=== PATIENT | male | born 1980 | race Caucasian/White ===

== ENCOUNTER 2016-05-14 20:09 | Emergency (ER) | payer MEDICAID, OTHER ==
[~2016-05-14] VITALS: Ht 180.3 cm; Wt 88.6 kg
[~2016-05-14 20:09] MED LIST: OXYC5TAB72 PO
[2016-05-14 20:19] VITALS: BP 139/81; PULSE 70; RESP 16; O2SAT 98
--- NOTE | 2016-05-14 20:58 | DRSVH ---
PROCEDURE: X-RAY RIGHT SHOULDER, MINIMUM TWO VIEWS ([id number]) INDICATIONS: Pain TECHNIQUE: 3 views of the shoulder were acquired. COMPARISON: None. FINDINGS: Bones: No fractures or dislocations. No suspicious bony lesions. Visualized ribs appear intact. Soft tissues: No suspicious soft tissue calcifications. IMPRESSION: No acute fracture. No osseous lesion. If clinical suspicion and/or symptoms persist, fur ther assessment with repeat plainfilms, or advanced imaging (e.g., CT, MRI, or bone scan) may be help ful for further assessment. Dictated by: Carina Perales M.D. on 05/14/2016 at 20:57 Approved by: Carina Perales M.D. on 05/14/2016 at 20:57
--- NOTE | 2016-05-14 21:41 | ED.REPORT ---
HPI-Back Pain Under 40 Date of Service May 14, 2016 ED Provider: Kofi Hernandez MD A right-handed 36 year old male with a history of chronic neck and back pain presents to the ED complaining of right shoulder pain. The pt was lifting heavy pieces of metal today when he heard a "pop" and "felt like something tore in his shoulder." He is now experiencing right shoulder pain, right sided chest wall pain, and pain radiating down his arm to his hand. The pt takes five 10 mg Hydrocodone per day at home for pain management. Nursing Notes Stated Complaint: RIGHT ARM,NECK,SHOULDER,CHEST PAIN Chief Complaint: Extremity Trauma Nursing Notes Reviewed: Yes Allergies: Uncoded Allergies: AMOXIC (Allergy, Severe, Anaphylaxis, 05/14/16) AMYTRYPTILINE (Adverse Reaction, Intermediate, Anger, 05/14/16) Scheduled Prednisone (PredniSONE) 20 Mg Tablet 20 MG PO TID Scheduled PRN oxyCODONE (oxyCODONE) 5 Mg Tablet 5 MG PO Q6H PRN PRN For Pain General Time Seen by MD: 21:40 Chief Complaint Other (Right shoulder pain) Hx Obtained From: Patient Arrived By: Walk-in Sudden in Onset?: Yes Onset Occurred: 1 - 4 hours ago Symptom Duration: Since onset Recent Healthcare: No recent hospitalization, Recent doctor visit Similar Sx Previous: Yes Past Medical History Past Medical History chronic neck and back pain Past Surgical History none reported Smoking History Former Smoker Social History Other Social History: Good social support, Local resident Ambulatory Status Independent Review of Systems Constitutional: Denies: Chills, Fever Respiratory: Denies: Non-productive cough Cardiovascular: Reports: Chest pain GI: Denies: Abdominal pain, Nausea, Vomiting Musculoskeletal: Reports: Extremity pain (right arm), Joint pain (right shoulder), Neck pain Complete sys rev & neg: except as marked. Physical Exam Initial Vital Signs Vital Signs (First) Date Time Temp Pulse Resp B/P Pulse Ox O2 Delivery O2 Flow Rate FiO2 05/14/16 20:19 36.4 70 16 139/81 98 Room Air Initial VS: Reviewed, Vital signs normal General/Constitutional: Awake, Alert Back: Atraumatic, Full range of motion Neurologic: Oriented X3, Speech NL, No motor deficits, No sensory deficits tenderness of neck Respiratory / Chest: Atraumatic, Breath sounds NL, Breath sounds = bilat, No respiratory distress Cardiovascular: Heart rate NL, Regular rhythm, Heart sounds NL Abdomen: Atraumatic, Soft, Non-tender Lower Extremity / Pelvis / MS: Atraumatic, Full range of motion Head / Eyes: Atraumatic, Normocephalic, PERRL, EOMI ENT: Atraumatic, Airway patent, Mucous membranes moist Upper Extremity / MS: Atraumatic spasm of right trapezius tender posterior shoulder decreased range of motion secondary to pain distal sensation intact Wrist / Hand: Atraumatic, Full range of motion Skin: Atraumatic, Color NL, No rash, Warm, Dry Psychiatric: Affect NL, Mood NL Interpretation & Diagnostics X-Ray Interpretation Xray Interpretation: IMPRESSION: No acute fracture. No osseous lesion. If clinical suspicion and/or symptoms persist, further assessment with repeat plainfilms, or advanced imaging (e.g., CT, MRI, or bone scan) may be helpful for further assessment. Dictated by: Carina Perales M.D. on 05/14/2016 at 20:57 Approved by: Carina Perales M.D. on 05/14/2016 at 20:57 X-Ray Ordered: Shoulder right Interpretation / Wet Read by: Interpret - Radiologist Re-Eval/Medical Decision Med Decision/Clinical Course Right shoulder pain with a history of a popping sensation when he was lifting. This seems to be most consistent with cervical radiculopathy. Torn rotator cuff is certainly a possibility but unlikely from this physical exam. He is already on chronic pain medications. He was encouraged to take the dose prescribed. He was given an additional Dilaudid 2 mg IM now and will talk to his doctor about further pain management if needed. He was also started on prednisone and he will increase his methocarbamol to 1500 mg 3 times daily. Source of Hx: Old records Re-Evaluation/Progress : Time of Eval: 21:56 Patient Status: Condition improved Re-Evaluation/Progress Note: Pt rechecked, who is comfortable. Medication options and radiology results are discussed. The plan for discharge is discussed. The pt understands and agrees with the plan. All questions are addressed at this time. Counseled Regarding: Diagnosis, Lab results, Need for follow-up, When/why to return to ED Discharge & Departure Impression: Primary Impression: Cervical radicular pain Disposition: Home All VS Reviewed: Yes Condition: Stable Patient Instructions: Cervical Radiculopathy (ED) Additional Instructions: It sounds like you may have herniated a disc in your neck, pinching one of the cervical nerves. You were given Dilaudid 2 mg IM in the emergency room for pain. Continue your other pain medication. You were also given prednisone 20 mg, a steroid that helps to shrink the herniation to decrease the pinching of the nerve. Continue this medication prednisone 20 mg 3 times a day for 5 days, #15 prescription written. You may increase your methocarbamol to 1500 mg 3 times daily. Follow-up with your regular doctor for further evaluation, possibly to include an MRI, and for further pain management. Referrals: Alexandra Ge DO (PCP) Fletcher Attestation Portions of this note were transcribed by Luann Garza. I, Dr. Hernandez personally performed the history, physical exam and medical decision-making; I reviewed and confirmed the accuracy of the information in the transcribed note. Signed by: Fletcher Alejandro, 05/14/2016 and 2223. copies to: Alexandra Ge Howard L MD May 14, 2016 21:41 LUANN GARZA May 14, 2016 21:58
[2016-05-14] MEDS ORDERED: HYDROmorphone 1 mg/mL Inj IM ONE (22:00)
[2016-05-14] MEDS ORDERED: predniSONE 20 mg Tablet PO ONE (22:00)
[2016-05-14] MEDS ORDERED: PRE20 PO (22:40)
[2016-05-14 22:47] VITALS: BP 129/86; PULSE 65; RESP 16; O2SAT 95
[2016-07-20] MEDS ORDERED: FLUT15.88 NS (17:13)
[2016-07-20] MEDS ORDERED: FERR325T6 PO (17:13)
[2016-07-20] MEDS ORDERED: DESV50TA PO (17:13)
[2016-07-20] MEDS ORDERED: RANI150C4 PO (17:13)
[2016-07-20] MEDS ORDERED: GABA-502 PO (17:13)
[2016-07-20] MEDS ORDERED: PRAM0.122 PO (17:13)
[2016-07-20] MEDS ORDERED: TOPI50TA88 PO (17:13)
[2016-07-20] MEDS ORDERED: CETI-343 PO (17:13)
[2016-07-20] MEDS ORDERED: PRAZ2CAP2 PO (17:13)
[2016-07-20] MEDS ORDERED: ASCO500C6 PO (17:13)
[2016-07-20] MEDS ORDERED: HYDR-3740 PO (17:13)
[2016-07-20] MEDS ORDERED: IBUP200C PO (17:13)
[2016-07-20] MEDS ORDERED: CETI10CA PO (17:13)
[2016-07-20] MEDS ORDERED: METH750T3 PO (17:13)
[2016-07-20] MEDS ORDERED: ACYC400T2 PO (17:13)
== END 2016-05-14 22:46 | disposition home or self-care (01) ==
LOC: SED 20:09
DX: M54.12 Radiculopathy, cervical region (principal); M25.511 Pain in right shoulder; X50.0XXA Overexertion from strenuous movement or load, initial encounter; Y93.89 Activity, other specified; Y92.89 Other specified places as the place of occurrence of the external cause; Y99.8 Other external cause status; R07.89 Other chest pain; Z87.891 Personal history of nicotine dependence; Z88.8 Allergy status to other drugs, medicaments and biological substances
CPT/HCPCS: 73030; 96372; 99284; J1170

== ENCOUNTER 2016-06-20 12:35 | Emergency (ER) | payer OTHER ==
[~2016-06-20] VITALS: Ht 180.3 cm; Wt 86.4 kg
[~2016-06-20 12:35] MED LIST changes: +PRE20 PO
[2016-06-20 12:44] VITALS: BP 129/78; PULSE 68; RESP 15; O2SAT 97
--- NOTE | 2016-06-20 12:52 | ED.REPORT ---
HPI-Headache Date of Service Jun 20, 2016 ED Provider: History of Present Illness: 36-year-old male here for headache and neck pain after a fall on 06/18/2016. He was standing on a bale of hay about 2 feet off the ground carrying 100 pounds of weight when he tripped and fell onto his right side. He hit his right shoulder, right knee and unsure if he hit his head or not. He did not lose consciousness. Since then he has had increasing neck pain and head pain. He feels like he has neck swelling and pressure building up into the base of his skull. He states he has pain behind his right eye and in the right side of his head. This is consistent with what his regular migraines feel like although it is worse. He also complains of right shoulder pain and right knee pain and right rib pain. He has chronic knee and shoulder issues as well as chronic back and neck issues. He has full range of motion of his knee and shoulder. He is not having any difficulty breathing, he denies chest pain. He is mentating normally no acute neuro deficits. He is here with family who confirms this Nursing Notes Stated Complaint: NECK PAIN,MIGRAINE DUE TO FALL Chief Complaint: Headache Nursing Notes Reviewed: Yes Allergies: Coded Allergies: amoxicillin (Verified Allergy, Severe, heart stops, 06/20/16) amitriptyline (Verified Adverse Reaction, Severe, angry, 06/20/16) Scheduled Prednisone (PredniSONE) 20 Mg Tablet 20 MG PO TID Scheduled PRN oxyCODONE (oxyCODONE) 5 Mg Tablet 5 MG PO Q6H PRN PRN For Pain General Time Seen by MD: 12:52 Chief Complaint Headache, Neck pain Hx Obtained From: Patient, Spouse Arrived By: Walk-in Sudden in Onset?: Yes Onset Occurred: 2 days ago Context of Onset: Head injury Symptom Duration: Constant Location: : Frontal right: Occipital right Severity: Current: Severe Severity: Maximum: Severe Similar Sx Previous: Yes Past Medical History Past Medical History chronic neck and back pain Past Surgical History none reported Smoking History Former Smoker Social History Other Social History: Good social support, Local resident Ambulatory Status Independent Review of Systems Basic Review of Systems Respiratory: No shortness of breath, No cough, No wheeze Cardiovascular: No chest pain, No dyspnea on exertion, No orthopnea, No parox noct dyspnea, No palpitations Hematologic: No bleeding, No bruising Constitutional: Denies: Chills, Fatigue, Fever, Lethargy, Malaise, Recent wt loss, Weakness - generalized Eyes: Reports: Eye pain right, Denies: Visual loss bilateral Ears / Nose / Throat: Denies: Ear drainage bilateral, Ear drainage left, Ear drainage right, Ear ringing bilateral, Ear ringing left, Ear ringing right, Earache bilateral, Earache left, Earache right, Hearing loss bilateral, Hearing loss left, Hearing loss right, Mouth pain, Nasal congestion, Nose bleeding, Sinus problem, Sore throat, Throat pain, Throat swelling, Tongue pain, Tongue swelling, Toothache, Voice change GI: Denies: Abdominal pain, Anorexia, Belching, Bloody/tarry stool, Constipation, Diarrhea, Dysphagia, Hematemesis, Hematochezia, Melena, Mucousy stool, Nausea, Rectal pain, Vomiting Musculoskeletal: Reports: Extremity pain, Joint pain, Lumbar pain, Neck pain Neurologic: Denies: Abnormal movement, Bladder dysfunction, Bowel dysfunction, Change LOC, Confusion, Dizziness, Focal weakness, Headache, Lightheaded, Numbness, Problem walking, Seizure, Shaking, Slurred speech, Spinning sensation , Syncope, Unable to speak, Vision change, Weakness Psychiatric: Denies: Agitation, Anxiety, Change mental status, Confusion, Delusional, Depression, Hallucinations, auditory, Hallucinations, visual, Homicidal ideation, Hostile, Insomnia, Stress, Suicidal ideation, Unable to control self Complete sys rev & neg: except as marked. Physical Exam Initial Vital Signs Vital Signs (First) Date Time Temp Pulse Resp B/P Pulse Ox O2 Delivery O2 Flow Rate FiO2 06/20/16 12:44 36.1 68 15 129/78 97 Room Air Initial VS: Reviewed, Vital signs normal ENT: Mucous membranes moist, Conjunctiva normal, No scleral icterus Respiratory: Breath sounds normal, Clear to auscultation, No respiratory distress Cardiovascular: Regular rate & rhythm, Heart sounds normal, Intact distal pulses Abdomen / GI: Soft, Non-tender, No guarding, No rebound, No distention Extremities: Vascular intact, Neuro intact, No swelling, No tenderness Skin: Warm, Dry, No cyanosis Psychiatric: Mood/affect normal, Behavior normal, Normal thought content General/Constitutional: Awake, Alert Head / Eyes: Atraumatic, Normocephalic, PERRL, EOMI, No nystagmus, No periorbital swelling, No photophobia, Conjunctiva NL, Temporal arteries NL Neck: Supple Neck / Muscle Tenderness: Positive: Midline tenderness high, Midline tenderness low, Midline tenderness mid, Paraspinal R... (Moderate) Trauma - Neck Specific: Positive: Immobilized - C Collar Neurologic: Oriented X3, Speech NL, No motor deficits, No sensory deficits, CN II - XII intact, Cerebellar NL, Memory NL ENT: Airway patent, Mucous membranes moist, Pharynx NL, No sinus tenderness Respiratory / Chest: Breath sounds NL, Breath sounds = bilat, No respiratory distress, No rales, No rhonchi, No wheezing Cardiovascular: Heart rate NL, Regular rhythm, Heart sounds NL, Peripheral circulation NL Abdomen: Soft, Non-tender, No guarding, No rebound Skin: Color NL, No rash, Warm, Dry, Turgor NL Upper Extremity / MS: Atraumatic, Inspection NL, Full range of motion mild tenderness to R shoulder, generalized Lower Extremity / Pelvis / MS: Inspection NL, Full range of motion generalized mild tender to R knee. Interpretation & Diagnostics Interpretation & Diagnostics: Patient Name: KAYLA MAYBERRY MR#: [id number] Location: SED Ordering Phys: Sanjuana Bishop [facility] Date of Service: 06/20/16 1306 Caution: Report not yet finalized and possibly incomplete! PROCEDURE: X-RAY THORACOLUMBAR SPINE, 2 VIEWS INDICATIONS: pain TECHNIQUE: 2 views acquired of the thoracolumbar spine. COMPARISON: None. FINDINGS: Bones: No acute fractures or dislocations. Minimal leftward curvature. Visualized inferior ribs appear intact. No suspicious bony lesions. Soft tissues: No suspicious soft tissue calcifications. IMPRESSION: No displaced fracture seen. If there is continued pain, followup exam or additional imaging such as MRI or CT could be performed for further assessment. Dictated by: Saul GONZALEZ Interpreted: Rama Corral MD on 06/20/2016 at 13:43 Transcribed by: ALICIA on 06/20/2016 at 13:43 Patient Name: KAYLA MAYBERRY MR#: [id number] Location: SED Ordering Phys: Sanjuana Bishop [facility] Date of Service: 06/20/16 1302 Caution: Report not yet finalized and possibly incomplete! PROCEDURE: X-RAY RIGHT RIBS, TWO VIEWS ([id number]) INDICATIONS: fall rib pain TECHNIQUE: 2 views of the right ribs were acquired. COMPARISON: None. FINDINGS: Surgical changes and devices: None. Bones and chest wall: No fractures or dislocations. No suspicious bony lesions. Overlying soft tissues appear unremarkable. Lungs and pleura: The visualized lung appears clear. No pleural effusions or pneumothorax are visible. IMPRESSION: No displaced right rib fractures. Patient Name: KAYLA MAYBERRY MR#: [id number] Location: SED Ordering Phys: Sanjuana Bishop [facility] Date of Service: 06/20/16 1302 PROCEDURE: CT BRAIN WITHOUT CONTRAST ([id number]) INDICATIONS: fall, headpain TECHNIQUE: Noncontrast 4.5 mm thick angled axial sections acquired from the foramen magnum to the vertex, with coronal reformats. COMPARISON: None. FINDINGS: Image quality: Diagnostic. Brain: There is no acute intra-axial or extra-axial hemorrhage. No extra-axial fluid collection is identified. There is no midline shift or mass effect. The orbits are grossly unremarkable. No large areas of diffusely decreased attenuation are evident within the brain to suggest diffuse cerebral edema. No focal parenchymal abnormality is identified. The ventricles and cortical sulci are age-appropriate. There may be mild thinning of the benavides matter within the bilateral frontal and occipital regions. Bones: Calvarium and visualized facial bones are grossly intact. The imaged paranasal sinuses and mastoid air cells are clear. IMPRESSION: Unremarkable CT of the head. No acute intracranial hemorrhage. Dictated by: Dg Cunningham M.D. on 06/20/2016 at 13:00 Approved by: Dg Cunningham M.D. on 06/20/2016 at 13:02 [facility] Diagnostic Imaging Department [place], [place] [id number] Patient Name: KAYLA MAYBERRY MR#: [id number] Location: SED Ordering Phys: Sanjuana Bishop [facility] Date of Service: 06/20/16 1302 PROCEDURE: CT CERVICAL SPINE WITHOUT CONTRAST ([id number]) INDICATIONS: fall, headpain TECHNIQUE: Noncontrast 3 mm thick sections acquired from the skull base to the T4 level. Sagittal and coronal reformats were then constructed. For radiation dose reduction, the following was used: automated exposure control, adjustment of mA and/or kV according to patient size. COMPARISON: [facility], CT, CT CERVICAL SPINE WO CON, 02/12/2016, 22:36. FINDINGS: Image quality: Diagnostic. Bones: On the sagittal views, the cervicothoracic junction is adequately visualized and the alignment through this region is within normal limits. The odontoid is intact. The craniocervical and atlantoaxial junctions are well-maintained. The vertebral body heights and prevertebral soft tissues are within normal limits throughout the cervical spine without evidence to suggest acute compression fracture. The bone mineralization is within normal limits. There is straightening of the normal cervical lordosis on the sagittal images. No spondylolisthesis is evident. Mild to moderate multilevel degenerative changes of the cervical spine are best appreciated at the level of C6-7, similar to the previous exam with posterior disc osteophyte complex and mild disc height loss. Additional disc osteophyte complexes are present within the cervical spine, with another prominent area noted at C4-5. These findings are similar to the previous exam. Soft tissues: No prevertebral soft tissue swelling. Mild prominence of the left thyroid gland is not adequately evaluated on this examination. The imaged overlying soft tissues of the neck are within normal limits. IMPRESSION: 1. No acute fracture of the cervical spine. 2. Mild to moderate degenerative changes of the cervical spine are similar to the previous exam. 3. Straightening of the normal cervical lordosis may be positional, degenerative, and/or related to muscle spasm. Dictated by: Dg Cunningham M.D. on 06/20/2016 at 13:02 Approved by: Dg Cunningham M.D. on 06/20/2016 at 13:05 Lab Results Interpretation Test 06/20/16 12:53 Hold Purple Top Tube Received (Received) Hold Blue Top Tube Received (Received) Hold [place] Top Tube Received (Received) Hold [place] Top Tube Received (Received) Re-Eval/Medical Decision Med Decision/Clinical Course 1440- pain still 8/10 after dilaudid and toradol. will remedicate. c/o migraine 1520- pt pain greatly decreased. no visual loss, CARIAS decreasing. ready to go. all CT/xrays neg for fracture. Pt can rotate/move head side to side. PT has ROM of back although limited r/t pain. Discharge & Departure Shift Change Sign-Out Laboratory Evaluation: Lab evaluation discussed Imaging Studies: Imaging discussed Procedures: Results discussed Impression: Primary Impression: Migraine Migraine type: without aura Status migrainosus presence: without status migrainosus Intractability: not intractable Qualified Code: G43.009 - Migraine without aura, not intractable, without status migrainosus Additional Impressions: Neck sprain Encounter type: initial encounter Qualified Code: S13.9XXA - Sprain of joints and ligaments of unspecified parts of neck, initial encounter Rib contusion Encounter type: initial encounter Laterality: right Qualified Code: S20.211A - Contusion of right front wall of thorax, initial encounter Lumbar strain Encounter type: initial encounter Qualified Code: S39.012A - Strain of muscle, fascia and tendon of lower back, initial encounter Disposition: Home Discharge Condition All VS Reviewed: Yes Condition: Stable Patient Instructions: Costochondritis (ED), Migraine Headache (ED) Additional Instructions: Use usual pain meds as needed to control your pain. You may want to add ibuprofen 800 mg 3 times a day for inflammation. Gentle movements as allowed per pain. Return if worsening back or neck pain, loss of bowel or bladder, fevers. Return if loss vision or eye pain. Return if any change of mental status. Or return for any concerning symptoms. may use ice and heat on the painful areas as well. Follow-up with your PCP for further care. Referrals: Alexandra Ge DO (PCP) EDSupervising Provider for APC: Marcel Mejia MD, Linnea K ARNP Jun 20, 2016 12:52
--- NOTE | 2016-06-20 13:44 | DRSVH ---
PROCEDURE: X-RAY THORACOLUMBAR SPINE, 2 VIEWS INDICATIONS: pain TECHNIQUE: 2 views acquired of the thoracolumbar spine. COMPARISON: None. FINDINGS: Bones: No acute fractures or dislocations. Minimal leftward curvature. Visualized inferior ribs [place] intact. No suspicious bony lesions. Soft tissues: No suspicious soft tissue calcifications. IMPRESSION: No displaced fracture seen. If there is continued pain, followup exam or additional cecil ging such as MRI or CT could be performed for further assessment. Dictated by: Saul Herman RRA Interpreted: Rama Corral MD on 06/20/2016 at 13:43 Transcribed by: ALICIA on 06/20/2016 at 13:43 Approved by: Rama Corral MD, PhD on 06/20/2016 at 17:18
--- NOTE | 2016-06-20 13:44 | DRSVH ---
PROCEDURE: X-RAY RIGHT RIBS, TWO VIEWS ([id number]) INDICATIONS: fall rib pain TECHNIQUE: 2 views of the right ribs were acquired. COMPARISON: None. FINDINGS: Surgical changes and devices: None. Bones and chest wall: No fractures or dislocations. No suspicious bony lesions. Overlying soft tis sues appear unremarkable. Lungs and pleura: The visualized lung appears clear. No pleural effusions or pneumothorax are visib le. IMPRESSION: No displaced right rib fractures. Dictated by: Saul Herman Zhen Interpreted: Rama Corral MD on 06/20/2016 at 13:43 Transcribed by: ALICIA on 06/20/2016 at 13:44 Approved by: Rama Corral MD, PhD on 06/20/2016 at 17:18
[2016-06-20] MEDS ORDERED: HYDROmorphone 1 mg/mL Inj IVPUSH ONE (13:45)
--- NOTE | 2016-06-20 14:03 | DRSVH ---
PROCEDURE: CT BRAIN WITHOUT CONTRAST ([id number]) INDICATIONS: fall, headpain TECHNIQUE: Noncontrast 4.5 mm thick angled axial sections acquired from the foramen magnum to the vertex, with c oronal reformats. COMPARISON: None. FINDINGS: Image quality: Diagnostic. Brain: There is no acute intra-axial or extra-axial hemorrhage. No extra-axial fluid collection is i dentified. There is no midline shift or mass effect. The orbits are grossly unremarkable. No large areas of diffusely decreased attenuation are evident within the brain to suggest diffuse cer ebral edema. No focal parenchymal abnormality is identified. The ventricles and cortical sulci are age-appropriate. There may be mild thinning of the benavides matter within the bilateral frontal and occipital regions. Bones: Calvarium and visualized facial bones are grossly intact. The imaged paranasal sinuses and m astoid air cells are clear. IMPRESSION: Unremarkable CT of the head. No acute intracranial hemorrhage. Dictated by: Dg Cunningham M.D. on 06/20/2016 at 13:00 Approved by: Dg Cunningham M.D. on 06/20/2016 at 13:02
--- NOTE | 2016-06-20 14:07 | DRSVH ---
PROCEDURE: CT CERVICAL SPINE WITHOUT CONTRAST ([id number]) INDICATIONS: fall, headpain TECHNIQUE: Noncontrast 3 mm thick sections acquired from the skull base to the T4 level. Sagittal and coronal r eformats were then constructed. For radiation dose reduction, the following was used: automated exp osure control, adjustment of mA and/or kV according to patient size. COMPARISON: [facility], CT, CT CERVICAL SPINE WO CON, 02/12/2016, 22:36. FINDINGS: Image quality: Diagnostic. Bones: On the sagittal views, the cervicothoracic junction is adequately visualized and the alignment through this region is within normal limits. The odontoid is intact. The craniocervical and atlant oaxial junctions are well-maintained. The vertebral body heights and prevertebral soft tissues are w ithin normal limits throughout the cervical spine without evidence to suggest acute compression fract ure. The bone mineralization is within normal limits. There is straightening of the normal cervical lordosis on the sagittal images. No spondylolisthesis is evident. Mild to moderate multilevel degenerative changes of the cervical spine are best apprecia floresita at the level of C6-7, similar to the previous exam with posterior disc osteophyte complex and mil d disc height loss. Additional disc osteophyte complexes are present within the cervical spine, with another prominent area noted at C4-5. These findings are similar to the previous exam. Soft tissues: No prevertebral soft tissue swelling. Mild prominence of the left thyroid gland is no t adequately evaluated on this examination. The imaged overlying soft tissues of the neck are within normal limits. IMPRESSION: 1. No acute fracture of the cervical spine. 2. Mild to moderate degenerative changes of the cervical spine are similar to the previous exam. 3. Straightening of the normal cervical lordosis may be positional, degenerative, and/or related to muscle spasm. Dictated by: Dg Cunningham M.D. on 06/20/2016 at 13:02 Approved by: Dg Cunningham M.D. on 06/20/2016 at 13:05
[2016-06-20] MEDS ORDERED: HYDROmorphone 1 mg/mL Inj IM ONE (14:45)
[2016-06-20] MEDS ORDERED: MetoCLOpramide 5 mg/mL 2 mL Inj IVPUSH PRN (14:45)
[2016-06-20 15:51] VITALS: BP 126/82; PULSE 52; O2SAT 100
[2016-07-20] MEDS ORDERED: DESV50TA PO (17:13)
[2016-07-20] MEDS ORDERED: ACYC400T2 PO (17:13)
[2016-07-20] MEDS ORDERED: METH750T3 PO (17:13)
[2016-07-20] MEDS ORDERED: TOPI50TA88 PO (17:13)
[2016-07-20] MEDS ORDERED: CETI10CA PO (17:13)
[2016-07-20] MEDS ORDERED: HYDR-3740 PO (17:13)
[2016-07-20] MEDS ORDERED: IBUP200C PO (17:13)
[2016-07-20] MEDS ORDERED: CETI-343 PO (17:13)
[2016-07-20] MEDS ORDERED: GABA-502 PO (17:13)
[2016-07-20] MEDS ORDERED: FLUT15.88 NS (17:13)
[2016-07-20] MEDS ORDERED: PRAM0.122 PO (17:13)
[2016-07-20] MEDS ORDERED: RANI150C4 PO (17:13)
[2016-07-20] MEDS ORDERED: FERR325T6 PO (17:13)
[2016-07-20] MEDS ORDERED: ASCO500C6 PO (17:13)
[2016-07-20] MEDS ORDERED: PRAZ2CAP2 PO (17:13)
== END 2016-06-20 15:49 | disposition home or self-care (01) ==
LOC: SED 12:35
DX: S13.9XXA Sprain of joints and ligaments of unspecified parts of neck, initial encounter (principal); S39.012A Strain of muscle, fascia and tendon of lower back, initial encounter; S20.211A Contusion of right front wall of thorax, initial encounter; M25.511 Pain in right shoulder; M25.561 Pain in right knee; W17.89XA Other fall from one level to another, initial encounter; Y93.89 Activity, other specified; Y92.89 Other specified places as the place of occurrence of the external cause; Y99.8 Other external cause status; G43.009 Migraine without aura, not intractable, without status migrainosus; Z87.891 Personal history of nicotine dependence; Z88.1 Allergy status to other antibiotic agents; Z88.8 Allergy status to other drugs, medicaments and biological substances
CPT/HCPCS: 70450; 71100; 72080; 72125; 96372; 96374; 96375; 99285; J1170; J1200; J1885; J2765

== ENCOUNTER 2016-07-11 17:00 | Emergency (ER) | payer OTHER ==
[~2016-07-11] VITALS: Ht 180.3 cm; Wt 87.7 kg
[2016-07-11 17:04] VITALS: BP 152/89; PULSE 60; RESP 16; O2SAT 99
--- NOTE | 2016-07-11 19:01 | ED.REPORT ---
HPI-Headache Date of Service July 11, 2016 ED Provider: Doc,Ed MD The patient is a 36 year old male with history of migraines and chronic neck and back pain, who presents to the emergency department complaining of a headache that began 2 days ago. His headache is located to the center of his forehead, both eyes, and on the right side of his head. He describes the pain as dull, sharp, and throbbing depending on the location. His pain is similar to his previous migraines. He has also noticed right shoulder discomfort and right- sided neck pain, photophobia, and phonophobia. He normally takes topiramate 75 mg twice daily preventively and hydrocodone, ibuprofen, and gabapentin for break through migraines. He denies visual changes, nausea, vomiting, fevers, chills, numbness or weakness. Nursing Notes Stated Complaint: PAIN IN NECK,HEAD,RIGHT SHOULDER Chief Complaint: Headache Nursing Notes Reviewed: Yes Allergies: Coded Allergies: amoxicillin (Verified Allergy, Severe, heart stops, 07/11/16) amitriptyline (Verified Adverse Reaction, Severe, angry, 07/11/16) Scheduled Prednisone (PredniSONE) 20 Mg Tablet 20 MG PO TID Scheduled PRN oxyCODONE (oxyCODONE) 5 Mg Tablet 5 MG PO Q6H PRN PRN For Pain General Time Seen by MD: 19:01 Chief Complaint Migraine headache Hx Obtained From: Patient Arrived By: Walk-in Sudden in Onset?: Yes Onset Occurred: 3 days ago Symptom Duration: Since onset Location: : Frontal bilateral: Parietal right: Retro orbital Quality: Dull, Painful, Sharp, Throbbing Severity: Current: Moderate Severity: Maximum: Severe Recent Healthcare: No recent hospitalization Similar Sx Previous: Yes Past Medical History Past Medical History Chronic neck and back pain Migraines Past Surgical History none reported Family History Noncontributory Smoking History Former Smoker Social History Other Social History: Good social support, Local resident Ambulatory Status Cane Review of Systems Review of Systems Note: +phonophobia Constitutional: Denies: Chills, Fever Eyes: Reports: Photophobia GI: Denies: Nausea, Vomiting Musculoskeletal: Reports: Joint pain, Neck pain Neurologic: Reports: Headache, Denies: Numbness, Vision change, Weakness Complete sys rev & neg: except as marked. Physical Exam Initial Vital Signs Vital Signs (First) Date Time Temp Pulse Resp B/P Pulse Ox O2 Delivery O2 Flow Rate FiO2 07/11/16 17:04 37.0 60 16 152/89 99 Room Air Initial VS: Reviewed, Vital signs abnormal ENT: Mucous membranes moist, Conjunctiva normal, No scleral icterus Respiratory: Breath sounds normal, Clear to auscultation, No respiratory distress Cardiovascular: Regular rate & rhythm, Heart sounds normal, Intact distal pulses Abdomen / GI: Soft, Non-tender, No guarding, No rebound, No distention Lymphatic: No lymphadenopathy Extremities: Vascular intact, No swelling, No tenderness Skin: Warm, Dry, No cyanosis Psychiatric: Mood/affect normal, Behavior normal, Normal thought content General/Constitutional: Awake, Alert Head / Eyes: Atraumatic, Normocephalic, PERRL, EOMI, No nystagmus, No photophobia, Conjunctiva NL, Temporal arteries NL Neck: Atraumatic, Supple, No meningismus, Full range of motion, No swelling, No midline vertebral tend Right-sided paraspinal tenderness. Neurologic: Oriented X3, Speech NL, No motor deficits, CN II - XII intact, Cerebellar NL, Memory NL Decreased sensation to his right lower leg (pt states this is chronic) Re-Eval/Medical Decision Med Decision/Clinical Course The patient has history of migraines and states this is typical migraine. He also has chronic shoulder problems and states his symptoms are worse but not new for him. Patient was treated with the tip. Pain medications patient was feeling improved and wanted to be discharged. There is no sign of a more serious etiology such as subarachnoid hemorrhage or meningitis. Source of Hx: Old records Re-Evaluation/Progress #1: Time of Eval: 19:12 Re-Evaluation/Progress Note: Discussed plan for treatment. Re-Evaluation/Progress #2: Time of Eval: 20:26 Re-Evaluation/Progress Note: The patient is feeling better and would like to go home. Counseled Regarding: Diagnosis, Need for follow-up, When/why to return to ED Discharge & Departure Impression: Primary Impression: Migraine Migraine type: unspecified Status migrainosus presence: without status migrainosus Intractability: not intractable Qualified Code: G43.909 - Migraine, unspecified, not intractable, without status migrainosus Disposition: Home Discharge Condition All VS Reviewed: Yes Condition: Stable Patient Instructions: Migraine Headache (ED) Additional Instructions: Thank you for entrusting us with your care today. I am glad you are feeling better. Go home and sleep if you can. You should be re-evaluated if you wake up with a headache. Seek care for any new or concerning symptoms. Referrals: Alexandra Ge DO (PCP) Fletcher Attestation Portions of this note were transcribed by Tessie Morales. I, Dr. Mae personally performed the history, physical exam and medical decision-making; I reviewed and confirmed the accuracy of the information in the transcribed note. Signed by: Fletcher Yanes, 07/11/2016 at 2045. copies to: Alexandra Ge Jena M MD July 11, 2016 19:01 Tessie Morales July 11, 2016 19:12
[2016-07-11] MEDS ORDERED: ProchlorPERazine 5 mg/mL 2 mL Inj IVPUSH ONE (19:15)
[2016-07-11] MEDS ORDERED: Dexamethasone Inj 10 MG in 0.9% Sodium Chloride-Pha MIX 50 ML IV ONE (19:15)
[2016-07-11] MEDS ORDERED: 0.9% Sodium Chloride 1,000 ML IV ONE (19:15)
[2016-07-11 20:37] VITALS: BP 126/69; PULSE 50; RESP 15; O2SAT 96
[2016-07-20] MEDS ORDERED: METH750T3 PO (17:13)
[2016-07-20] MEDS ORDERED: PRAZ2CAP2 PO (17:13)
[2016-07-20] MEDS ORDERED: ACYC400T2 PO (17:13)
[2016-07-20] MEDS ORDERED: CETI10CA PO (17:13)
[2016-07-20] MEDS ORDERED: ASCO500C6 PO (17:13)
[2016-07-20] MEDS ORDERED: TOPI50TA88 PO (17:13)
[2016-07-20] MEDS ORDERED: HYDR-3740 PO (17:13)
[2016-07-20] MEDS ORDERED: GABA-502 PO (17:13)
[2016-07-20] MEDS ORDERED: IBUP200C PO (17:13)
[2016-07-20] MEDS ORDERED: DESV50TA PO (17:13)
[2016-07-20] MEDS ORDERED: FERR325T6 PO (17:13)
[2016-07-20] MEDS ORDERED: RANI150C4 PO (17:13)
[2016-07-20] MEDS ORDERED: CETI-343 PO (17:13)
[2016-07-20] MEDS ORDERED: FLUT15.88 NS (17:13)
[2016-07-20] MEDS ORDERED: PRAM0.122 PO (17:13)
== END 2016-07-11 20:31 | disposition home or self-care (01) ==
LOC: SED 17:00
DX: G43.909 Migraine, unspecified, not intractable, without status migrainosus (principal); M54.2 Cervicalgia; M25.511 Pain in right shoulder; M54.9 Dorsalgia, unspecified; G89.29 Other chronic pain; Z87.891 Personal history of nicotine dependence; Z88.8 Allergy status to other drugs, medicaments and biological substances; Z88.0 Allergy status to penicillin
CPT/HCPCS: 96374; 96375; 99284; G0463; J0780; J1100; J1200; J1885; J3360; J7030

== ENCOUNTER 2016-07-22 09:15 | Day surgery (SDC) | payer OTHER ==
[~2016-07-22] VITALS: Ht 180.3 cm; Wt 88.0 kg
[~2016-07-22 09:15] MED LIST changes: +ACYC400T2 PO; +ASCO500C6 PO; +CETI-343 PO; +CETI10CA PO; +DESV50TA PO; +FERR325T6 PO; +FLUT15.88 NS; +GABA-502 PO; +HYDR-3740 PO; +IBUP200C PO; +METH750T3 PO; -OXYC5TAB72 PO; +PRAM0.122 PO; +PRAZ2CAP2 PO; -PRE20 PO; +RANI150C4 PO; +TOPI50TA88 PO; +fentaNYL-PF 50 mCg/mL 2 mL Inj IVPUSH PRN
[2016-07-22] MEDS ORDERED: Iohexol 240 mg/mL 10 mL Inj ONE (09:16)
[2016-07-22] MEDS ORDERED: MethylprednisoLONE Depot 80 mg/mL Inj ONE (09:16)
[2016-07-22 09:48] VITALS: BP 147/88; PULSE 60; RESP 14; O2SAT 98
[2016-07-22 10:38] VITALS: BP 139/83; PULSE 52; RESP 16; O2SAT 96
[2016-07-22 10:50] VITALS: BP 131/81; PULSE 52; RESP 16; O2SAT 97
[2016-07-22 10:57] VITALS: BP 143/90; PULSE 55; RESP 16; O2SAT 97
[2016-07-22] MEDS ORDERED: 0.9% Sodium Chloride 1,000 ML IV ONE (11:00)
--- NOTE | 2016-07-22 15:01 | PCM.PROC ---
Procedure Note Date of Service: July 22, 2016 Pre Procedure Diagnosis: PROCEDURE: Cervical interlaminar epidural steroid injection. C6-C7. IV sedation PRE-PROCEDURE DIAGNOSIS: Cervical radiculopathy/cervical spinal stenosis POST-PROCEDURE DIAGNOSIS: same INDICATION: 36-year-old gentleman with cervical spinal stenosis/radiculopathy PERFORMED BY: Bladimir Garcia MD DESCRIPTION OF PROCEDURE: Patient was met in the holding area. Consent was signed, site was confirmed and all questions were answered. Patient was taken to the procedure suite and placed prone on the procedure table with neck in a flexed position. The proper interspace was identified using fluoroscopic guidance. Local anesthesia with 1% lidocaine was used to anesthetize the skin and subcutaneous tissues. A 20-gauge Touhy epidural needle was advanced under tunnel view vision using direct fluoroscopic guidance towards the inferior lamina using a RIGHT paramedian approach. A contralateral oblique view was used to gauge depth after the needle was walked off the lamina. After loss of resistance was obtained using a loss of resistance syringe, radiopaque contrast was injected under live fluoroscopic view which confirmed epidural placement as well as the absence of intravascular uptake. 80 mg Depo-Medrol was injected without difficulty. ANESTHESIA: Local. 2 mg Versed EBL: None. No Blood Products Used COMPLICATIONS: None SPECIMENS: None POST-PROCEDURE DISPOSITION: Patient was returned to the holding area in stable condition. They were discharged home when all discharge criteria were met. Evaluation/Physical Exam before discharge revealed: No Neurologic Change DISCHARGE MEDICATIONS: None FOLLOW UP: Return to clinic in 4 weeks Bladimir Garcia MD * Pain Management * Anesthesiology (Dictated using voice-recognition software) Bladimir Garcia MD July 22, 2016 15:01
== END 2016-07-22 23:59 | disposition home or self-care (01) ==
LOC: END 09:15
PROVIDERS: ATTEND Anesthesiology Pain Medicine
DX: M48.02 Spinal stenosis, cervical region (principal); G95.9 Disease of spinal cord, unspecified; M54.12 Radiculopathy, cervical region; Z87.891 Personal history of nicotine dependence; F43.10 Post-traumatic stress disorder, unspecified
CPT/HCPCS: 62321; G0500; J1040; J7030

== ENCOUNTER 2016-09-04 14:23 | Emergency (ER) | payer OTHER ==
[~2016-09-04] VITALS: Ht 180.3 cm; Wt 84.1 kg
[~2016-09-04 14:23] MED LIST changes: -fentaNYL-PF 50 mCg/mL 2 mL Inj IVPUSH PRN
[2016-09-04 14:31] VITALS: BP 138/83; PULSE 57; RESP 20; O2SAT 99
--- NOTE | 2016-09-04 15:59 | ED.REPORT ---
History Present Illness Date of Service Sep 04, 2016 ED Provider: Nursing Notes Stated Complaint: MIGRAINE Chief Complaint: Headache Allergies: Coded Allergies: amoxicillin (Verified Allergy, Severe, heart stops, 07/11/16) clavulanic acid (Verified Allergy, Mild, 07/20/16) amitriptyline (Verified Adverse Reaction, Severe, angry, 07/11/16) Scheduled Acyclovir (Acyclovir) 400 Mg Tablet 400 MG PO BID Cetirizine HCl (Zyrtec) 10 Mg Capsule 10 MG PO HS Desvenlafaxine Succinate ER (Pristiq ER) 50 Mg Tablet 50 MG PO DAILY Fluticasone Propionate (Fluticasone Propionate) 50 Mcg/Actuation [place].susp 15.8 ML NS DAILY Gabapentin (Gabapentin) 300 Mg Capsule 1,200 MG PO TID Pramipexole Dihydrochloride (Mirapex) 0.125 Mg Tablet 0.125 MG PO HS Prazosin (Prazosin) 2 Mg Capsule 2 MG PO QID Ranitidine (Ranitidine) 150 Mg Capsule 150 MG PO BID Topiramate (Topiramate) 25 Mg Tablet 75 MG PO BID Scheduled PRN Haloperidol (Haloperidol) 5 Mg Tablet 2.5-5 MG PO Q8H PRN PRN migraine Hydrocodone-Acetaminophen 10-325 mg (Hydrocodone-Acetaminophen 10-325 mg) 1 Each Tablet 1 TABLET PO Q6H PRN PRN For Pain Ibuprofen (Ibuprofen) 600 Mg Tablet 600 MG PO QID PRN PRN For Pain Methocarbamol (Methocarbamol) 750 Mg Tablet 750 MG PO QID PRN PRN For Spasm General Time Seen by MD: 15:58 Past Medical History Smoking History Former Smoker Physical Exam Initial Vital Signs Vital Signs (First) Date Time Temp Pulse Resp B/P Pulse Ox O2 Delivery O2 Flow Rate FiO2 09/04/16 14:31 36.5 57 20 138/83 99 Room Air Discharge & Departure Referrals: Alexandra Ge DO (PCP) Sanjuana Bishop Sep 04, 2016 15:59 Sanjuana Bishop Sep 04, 2016 15:59
--- NOTE | 2016-09-04 16:08 | ED.REPORT ---
HPI-Headache Date of Service Sep 04, 2016 ED Provider: Julian Roman MD Pt is a 36 y/o male w/ a hx of migraines presenting to the ED c/o CARIAS onset 2 days ago. The patient states that he gets migraines occasionally after a head injury in the past and they are sometimes brought on by warm weather such as today. He c/o associated photophobia, nausea. Pt denies vomiting, fever, chills , neck pain, vision or speech changes, focal numbness or weakness. There is no significant difference between his headache today and a typical migraine. Nursing Notes Stated Complaint: MIGRAINE Chief Complaint: Headache Nursing Notes Reviewed: Yes ([employer], [employer] not reconciled) Allergies: Coded Allergies: amoxicillin (Verified Allergy, Severe, heart stops, 07/11/16) clavulanic acid (Verified Allergy, Mild, 07/20/16) amitriptyline (Verified Adverse Reaction, Severe, angry, 07/11/16) Scheduled Acyclovir (Acyclovir) 400 Mg Tablet 400 MG PO BID Cetirizine HCl (Zyrtec) 10 Mg Capsule 10 MG PO HS Desvenlafaxine Succinate ER (Pristiq ER) 50 Mg Tablet 50 MG PO DAILY Fluticasone Propionate (Fluticasone Propionate) 50 Mcg/Actuation [place].susp 15.8 ML NS DAILY Gabapentin (Gabapentin) 300 Mg Capsule 1,200 MG PO TID Pramipexole Dihydrochloride (Mirapex) 0.125 Mg Tablet 0.125 MG PO HS Prazosin (Prazosin) 2 Mg Capsule 2 MG PO QID Ranitidine (Ranitidine) 150 Mg Capsule 150 MG PO BID Topiramate (Topiramate) 25 Mg Tablet 75 MG PO BID Scheduled PRN Haloperidol (Haloperidol) 5 Mg Tablet 2.5-5 MG PO Q8H PRN PRN migraine Hydrocodone-Acetaminophen 10-325 mg (Hydrocodone-Acetaminophen 10-325 mg) 1 Each Tablet 1 TABLET PO Q6H PRN PRN For Pain Ibuprofen (Ibuprofen) 600 Mg Tablet 600 MG PO QID PRN PRN For Pain Methocarbamol (Methocarbamol) 750 Mg Tablet 750 MG PO QID PRN PRN For Spasm General Time Seen by MD: 16:04 Chief Complaint Headache Hx Obtained From: Patient Arrived By: Walk-in Sudden in Onset?: No Onset Occurred: 2 days ago Symptom Duration: Since onset Location: : Generalized Quality: Aching Severity: Current: Moderate Severity: Maximum: Moderate Recent Healthcare: Previous diagnosis Similar Sx Previous: Yes Past Medical History Past Medical History Chronic neck and back pain Migraines Restless leg syndrome Past Surgical History none reported Family History Noncontributory Smoking History Former Smoker Social History Other Social History: Good social support, Local resident Ambulatory Status Cane Review of Systems Constitutional: Denies: Chills, Fever GI: Reports: Nausea, Denies: Abdominal pain, Vomiting Musculoskeletal: Denies: Neck pain Neurologic: Reports: Headache, Denies: Focal weakness, Numbness, Slurred speech, Unable to speak, Vision change Complete sys rev & neg: except as marked. Physical Exam Initial Vital Signs Vital Signs (First) Date Time Temp Pulse Resp B/P Pulse Ox O2 Delivery O2 Flow Rate FiO2 09/04/16 14:31 36.5 57 20 138/83 99 Room Air Initial VS: Reviewed, Vital signs normal ENT: Mucous membranes moist, Conjunctiva normal, No scleral icterus Respiratory: Breath sounds normal, Clear to auscultation, No respiratory distress Cardiovascular: Regular rate & rhythm, Heart sounds normal, Intact distal pulses Abdomen / GI: Soft, No distention Extremities: Vascular intact, Neuro intact, No swelling Skin: Warm, Dry, No cyanosis Psychiatric: Mood/affect normal, Behavior normal, Normal thought content General/Constitutional: Awake, Alert, No acute distress, Well appearing, Cooperative, Not toxic appearing Head / Eyes: Atraumatic, Normocephalic, PERRL Neck: Atraumatic, Supple, No meningismus, Full range of motion Neurologic: Oriented X3, Speech NL, No motor deficits, No sensory deficits Re-Eval/Medical Decision Med Decision/Clinical Course This is a 36-year-old male with a long history of migraines following traumatic injury years ago, is intermittent headaches. Presents complaining of a migraine with the past days. Reports is typical, severe, with photophobia trace nausea. He is seeing multiple providers, but never had a definitive cocktail that has worked well. He reports he developed severe akisthesia the point he signed out about this last ED presentation here, likely from promethazine. Than he has no focal deficits. He has no red flags to suggest meningitis, subarachnoid, or need for CT imaging or LP. Went over a number of medicines and although as I was in his allergies is intolerant of many describes significant concern for trying Phenergan at all again. There are multiple traumas patient is here, requiring and spitting care in the end I gave him a dose of Dilaudid is reports S worked well. It helped considerably, but I was able to document to an adjunct of haloperidol that worked really well-the point he feels much better and I am discharging him with some oral haloperidol for when necessary use. Denies follow-up with his provider. Routine and return precautions reviewed. Source of Hx: Old records Re-Evaluation/Progress #1: Time of Eval: 17:00 Re-Evaluation/Progress Note: Pt rechecked. Feeling better but still has a moderate CARIAS. Re-Evaluation/Progress #2: Time of Eval: 17:56 )( Patient Status: Condition improved, Moderate relief, Pain improved Evaluation: Mental status normal, Neurologic nonfocal Re-Evaluation/Progress Note: Pt rechecked. Informed pt of plan for treatment. Pt understands and agrees with plan for treatment. F/U instructions and RTER warnings given. All questions addressed. Differential Diagnosis: Positive: Headache, migraine, Negative: Carbon monoxide toxicity, Cerebrovascular accident, Closed head injury, Encephalitis, Headache, post LP, Hemorrhage, cerebellar, Hemorrhage, intracerebral, Hemorrhage, subarachnoid, Hemorrhage, subdural, Intracranial abscess, Medication reaction, Meningitis, Post-traumatic/concussion, Pseudotumor cerebri, Temporal arteritis Counseled Regarding: Diagnosis, Need for follow-up, When/why to return to ED Discharge & Departure Impression: Primary Impression: Migraine Migraine type: unspecified Status migrainosus presence: without status migrainosus Intractability: not intractable Qualified Code: G43.909 - Migraine, unspecified, not intractable, without status migrainosus Disposition: Home Discharge Condition All VS Reviewed: Yes Condition: Stable Patient Instructions: Migraine Headache (ED) Additional Instructions: 1. Rest. 2. I have written for some haloperidol 5mg 1/2-1 tab up to every 12 hours if needed for migraine headache. NOTE: This medication causes drowsiness. NO driving for at least 6 hours after taking. Referrals: Alexandra Ge DO (PCP) Scribe Attestation Portions of this note were transcribed by Rick Albarran. I, Dr. Roman personally performed the history, physical exam and medical decision-making; I reviewed and confirmed the accuracy of the information in the transcribed note. Signed by Fletcher Camacho, 09/04/16 1622 copies to: Alexandra Ge Matthew F MD Sep 04, 2016 16:08 RICK ALBARRAN Sep 04, 2016 16:15
[2016-09-04] MEDS ORDERED: HYDROmorphone 1 mg/mL Inj IVPUSH ONE ×2 (16:20→17:10)
[2016-09-04] MEDS ORDERED: IBUP-1827 PO (16:50)
[2016-09-04] MEDS ORDERED: TOPI-59 PO (16:50)
[2016-09-04] MEDS ORDERED: GABA-502 PO (16:50)
[2016-09-04] MEDS ORDERED: Haloperidol 5 mg/mL Inj IVPUSH ONE (17:10)
[2016-09-04] MEDS ORDERED: HAL5 PO (17:52)
[2016-09-04 18:07] VITALS: BP 131/77; PULSE 54; RESP 16; O2SAT 99
== END 2016-09-04 18:08 | disposition home or self-care (01) ==
LOC: SED 14:23
DX: G43.909 Migraine, unspecified, not intractable, without status migrainosus (principal); Z87.891 Personal history of nicotine dependence; Z79.899 Other long term (current) drug therapy; Z88.1 Allergy status to other antibiotic agents; Z88.8 Allergy status to other drugs, medicaments and biological substances
CPT/HCPCS: 96374; 96375; 96376; 99284; J1170; J1630

== ENCOUNTER 2016-09-20 20:40 | Emergency (ER) | payer OTHER ==
[~2016-09-20] VITALS: Ht 180.3 cm; Wt 86.0 kg
[~2016-09-20 20:40] MED LIST changes: -ASCO500C6 PO; -CETI-343 PO; -FERR325T6 PO; +HAL5 PO; +IBUP-1827 PO; -IBUP200C PO; +TOPI-59 PO; -TOPI50TA88 PO
[2016-09-20 21:10] VITALS: BP 144/89; PULSE 59; RESP 16; O2SAT 99
[2016-09-20 22:12] LABS: BASOPHILS % (AUTO) 0.2 % (0-3); EOSINOPHILS % (AUTO) 1.8 % (0-5); Mean Corpuscular Hemoglobin 32.2 pg (27.0-35.0); Mean Corpuscular Volume 91.7 fL (81-100); NEUTROPHILS % (AUTO) 48.4 % (40-74); Platelet Count 405 bil/L (150-400)
--- NOTE | 2016-09-20 22:40 | ED.REPORT ---
HPI-Headache Date of Service Sep 20, 2016 ED Provider: Dr. Sarabia 36 y/o male with hx of migraines presents to the ED complaining of a worsening headache, onset 3 days ago. 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 His headache has been constant since then. Associated sx include lack of appetite, dizziness and fatigue. He denies nausea, vomiting and decreased sensation in extremities. He took his prescribed Haldol without any relief. Nursing Notes Stated Complaint: MIGRAINE Chief Complaint: Headache Nursing Notes Reviewed: Yes Allergies: Coded Allergies: amoxicillin (Verified Allergy, Severe, heart stops, 07/11/16) clavulanic acid (Verified Allergy, Mild, 07/20/16) amitriptyline (Verified Adverse Reaction, Severe, angry, 07/11/16) Scheduled Acyclovir (Acyclovir) 400 Mg Tablet 400 MG PO BID Cetirizine HCl (Zyrtec) 10 Mg Capsule 10 MG PO HS Desvenlafaxine Succinate ER (Pristiq ER) 50 Mg Tablet 50 MG PO DAILY Fluticasone Propionate (Fluticasone Propionate) 50 Mcg/Actuation [place].susp 15.8 ML NS DAILY Gabapentin (Gabapentin) 300 Mg Capsule 1,200 MG PO TID Pramipexole Dihydrochloride (Mirapex) 0.125 Mg Tablet 0.125 MG PO HS Prazosin (Prazosin) 2 Mg Capsule 2 MG PO QID Ranitidine (Ranitidine) 150 Mg Capsule 150 MG PO BID Topiramate (Topiramate) 25 Mg Tablet 75 MG PO BID Scheduled PRN Haloperidol (Haloperidol) 5 Mg Tablet 2.5-5 MG PO Q8H PRN PRN migraine Hydrocodone-Acetaminophen 10-325 mg (Hydrocodone-Acetaminophen 10-325 mg) 1 Each Tablet 1 TABLET PO Q6H PRN PRN For Pain Ibuprofen (Ibuprofen) 600 Mg Tablet 600 MG PO QID PRN PRN For Pain Methocarbamol (Methocarbamol) 750 Mg Tablet 750 MG PO QID PRN PRN For Spasm Prochlorperazine Maleate (Compazine Suppository) 25 Mg Supp.rect 25 MG RC Q8 PRN PRN For Nausea/Vomiting General Time Seen by MD: 22:39 Chief Complaint Migraine headache Hx Obtained From: Patient Arrived By: Walk-in Sudden in Onset?: Yes Onset Occurred: 3 days ago Symptom Duration: Since onset Location: : Generalized Quality: Painful Radiation: : Does not radiate Severity: Current: Moderate Severity: Maximum: Moderate Recent Healthcare: No recent doctor visit Similar Sx Previous: Yes Past Medical History Past Medical History Chronic neck and back pain Migraines Restless leg syndrome Past Surgical History none reported Family History Noncontributory Smoking History Former Smoker Social History Other Social History: Good social support, Local resident Ambulatory Status Cane Review of Systems Reports: lack of appetite Denies: decreased sensation in extremities Constitutional: Reports: Fatigue GI: Denies: Nausea, Vomiting Neurologic: Reports: Dizziness, Headache Complete sys rev & neg: except as marked. Physical Exam Initial Vital Signs Vital Signs (First) Date Time Temp Pulse Resp B/P Pulse Ox O2 Delivery O2 Flow Rate FiO2 09/20/16 21:10 37.1 59 16 144/89 99 Room Air Initial VS: Reviewed Respiratory: Breath sounds normal, Clear to auscultation, No respiratory distress Cardiovascular: Regular rate & rhythm, Heart sounds normal, Intact distal pulses Abdomen / GI: Soft, Non-tender Extremities: Vascular intact, Neuro intact, No swelling, No tenderness Skin: Warm, Dry, No cyanosis General/Constitutional: Awake, Alert, No acute distress, Cooperative Head / Eyes: Atraumatic, Normocephalic, PERRL Neck: Atraumatic, Supple, Full range of motion Neurologic: Oriented X3, Speech NL, No motor deficits, No sensory deficits ENT: Atraumatic, Airway patent Mouth: Positive: Mucous membranes dry Interpretation & Diagnostics Lab Results Interpretation Result Diagram: 09/20/16220809/20/162208 Test 09/20/16 22:09 White Blood Count 8.4th/mm3 (3.8-10.1) Red Blood Count 4.32mil/mm3 (4.40-5.80) Hemoglobin 13.9g/dL (13.8-17.2) Hematocrit 39.6% (41.0-50.0) Mean Corpuscular Volume 91.7fL (81-100) Mean Corpuscular Hemoglobin 32.2pg (27.0-35.0) Mean Corpuscular Hemoglobin Concent 35.1% (32.0-37.0) Red Cell Distribution Width 12.7% (12.3-15.4) Platelet Count 405bil/L (150-400) Neutrophils (%) (Auto) 48.4% (40-74) Lymphocytes (%) (Auto) 44.5% (14-46) Monocytes (%) (Auto) 5.0% (4-12) Eosinophils (%) (Auto) 1.8% (0-5) Basophils (%) (Auto) 0.2% (0-3) Sodium Level 142mEq/L (134-144) Potassium Level 3.9mEq/L (3.5-5.2) Chloride Level 105mEq/L (97-108) Carbon Dioxide Level 22mmol/L (18-29) Blood Urea Nitrogen 15mg/dL (6-20) Creatinine 0.67mg/dL (0.76-1.27) Estimat Glomerular Filtration Rate 141mL/min (>59) Glucose Level 87mg/dL (60-99) Calcium Level 9.7mg/dL (8.5-10.1) Re-Eval/Medical Decision Med Decision/Clinical Course 1-year-old history of migraines presents with ongoing migraine for three days. He took some oral Haldol at home as previously prescribed with minimal relief. He expressed a desire for Dilaudid but was advised that that was inappropriate treatment for migraine headache. He is improved at least marginally with IV Haldol Benadryl Decadron IV hydration and then Brought. He is discharged home in stable condition for follow-up with PCP. Source of Hx: Old records Re-Evaluation/Progress : Time of Eval: 00:01 Re-Evaluation/Progress Note: Rechecked pt. Discussed lab results, diagnosis and plan to discharge. Pt understands and agrees with the plan. F/U instructions and RTER warning given. All questions addressed. Counseled Regarding: Diagnosis, Lab results, Need for follow-up, When/why to return to ED Discharge & Departure Impression: Primary Impression: Migraine Migraine type: unspecified Status migrainosus presence: without status migrainosus Intractability: intractable Qualified Code: G43.919 - Migraine, unspecified, intractable, without status migrainosus Additional Impression: Restless legs syndrome Disposition: Home Discharge Condition All VS Reviewed: Yes Condition: Stable Patient Instructions: Migraine Headache (ED), Restless Legs Syndrome (ED) Additional Instructions: Drink plenty of fluids to stay hydrated. Follow up with your doctor in the office. Compazine as a suppository can be useful both for nausea and for headache. Return if any immediate issues. Referrals: Alexandra Ge DO (PCP) Fletcher Attestation Portions of this note were transcribed by Lawrence Vuong. I, Dr. Sarabia, personally performed the history, physical exam and medical decision-making;I reviewed and confirmed the accuracy of the information in the transcribed note. Signed by Fletcher Juarez. 09/21/16 00:53 copies to: Alexandra Ge Christopher W MD Sep 20, 2016 22:40 Lawrence Vuong Sep 21, 2016 00:44
[2016-09-20] MEDS ORDERED: 0.9% Sodium Chloride 1,000 ML IV ONE ×2 (22:48→22:50)
[2016-09-20] MEDS ORDERED: Haloperidol 5 mg/mL Inj IVPUSH ONE (22:50)
[2016-09-20] MEDS ORDERED: Ondansetron 2 mg/mL 2 mL Inj IVPUSH ONE (22:50)
[2016-09-20] MEDS ORDERED: Dexamethasone 10 mg/mL Inj IVPUSH ONE (22:50)
[2016-09-21] MEDS ORDERED: PROC25SU30 RC (00:17)
[2016-09-21 00:32] VITALS: BP 138/82; PULSE 62; RESP 16; O2SAT 100
== END 2016-09-21 00:33 | disposition home or self-care (01) ==
LOC: SED 20:40
DX: G43.919 Migraine, unspecified, intractable, without status migrainosus (principal); G25.81 Restless legs syndrome; Z87.891 Personal history of nicotine dependence; Z79.899 Other long term (current) drug therapy; Z88.1 Allergy status to other antibiotic agents; Z88.8 Allergy status to other drugs, medicaments and biological substances
CPT/HCPCS: 36415; 80048; 85025; 96374; 96375; 99285; J1100; J1200; J1630; J1885; J1953; J2405; J7030

== ENCOUNTER 2016-10-20 13:43 | Emergency (ER) | payer OTHER ==
[~2016-10-20] VITALS: Ht 180.3 cm; Wt 86.4 kg
[~2016-10-20 13:43] MED LIST changes: +PROC25SU30 RC
[2016-10-20 14:03] VITALS: BP 123/79; PULSE 64; RESP 10; O2SAT 98
[2016-10-20] MEDS ORDERED: 0.9% Sodium Chloride 1,000 ML IV ONE (14:58)
[2016-10-20] MEDS ORDERED: ProchlorPERazine 5 mg/mL 2 mL Inj IVPUSH ONE (15:00)
[2016-10-20] MEDS ORDERED: Ondansetron 2 mg/mL 2 mL Inj IVPUSH ONE (15:00)
[2016-10-20] MEDS ORDERED: Ketamine 10 mg/mL 20 mL Inj IV ONE (15:10)
--- NOTE | 2016-10-20 16:19 | ED.REPORT ---
HPI-General Illness Date of Service Oct 20, 2016 ED Provider: Frantz Jimenez MD Pt is a 36 year old male with a history of headaches who presents to the ED complaining of sharp headache onset 4 days ago. He denies nausea, vomiting, fever, chills, chest pain, abdominal pain, hematochezia, hematuria, focal weakness, and diarrhea. Pt rates the pain as a 9/10, and he reports that he has taken Haldol and other medications with minimal relief. Per pt, the headache was gradual in onset and is becoming progressively worse. He states that his sharp headache is typical for his previous migraines. Nursing Notes Stated Complaint: MIGRAINES Chief Complaint: Headache Nursing Notes Reviewed: Yes Allergies: Coded Allergies: amoxicillin (Verified Allergy, Severe, heart stops, 07/11/16) clavulanic acid (Verified Allergy, Mild, 07/20/16) amitriptyline (Verified Adverse Reaction, Severe, angry, 07/11/16) Scheduled Acyclovir (Acyclovir) 400 Mg Tablet 400 MG PO BID Cetirizine HCl (Zyrtec) 10 Mg Capsule 10 MG PO HS Desvenlafaxine Succinate ER (Pristiq ER) 50 Mg Tablet 50 MG PO DAILY Fluticasone Propionate (Fluticasone Propionate) 50 Mcg/Actuation [place].susp 15.8 ML NS DAILY Gabapentin (Gabapentin) 300 Mg Capsule 1,200 MG PO TID Pramipexole Dihydrochloride (Mirapex) 0.125 Mg Tablet 0.125 MG PO HS Prazosin (Prazosin) 2 Mg Capsule 2 MG PO QID Ranitidine (Ranitidine) 150 Mg Capsule 150 MG PO BID Topiramate (Topiramate) 25 Mg Tablet 75 MG PO BID Scheduled PRN Haloperidol (Haloperidol) 5 Mg Tablet 2.5-5 MG PO Q8H PRN PRN migraine Hydrocodone-Acetaminophen 10-325 mg (Hydrocodone-Acetaminophen 10-325 mg) 1 Each Tablet 1 TABLET PO Q6H PRN PRN For Pain Ibuprofen (Ibuprofen) 600 Mg Tablet 600 MG PO QID PRN PRN For Pain Methocarbamol (Methocarbamol) 750 Mg Tablet 750 MG PO QID PRN PRN For Spasm Prochlorperazine Maleate (Compazine Suppository) 25 Mg Supp.rect 25 MG RC Q8 PRN PRN For Nausea/Vomiting General Time Seen by MD: 14:58 Chief Complaint Headache Hx Obtained From: Patient Arrived By: Walk-in Sudden in Onset?: No Onset Occurred: 4 days ago Symptom Duration: Since onset Location: : Head Severity: Current: Pain level 9 out of 10 Severity: Maximum: Pain level 9 out of 10 Past Medical History Past Medical History Chronic neck and back pain Migraines Restless leg syndrome Past Surgical History none reported Family History Noncontributory Smoking History Former Smoker Social History Other Social History: Good social support, Local resident Ambulatory Status Cane Review of Systems Full Review of Systems Constitutional: Denies: Chills, Fever Cardiovascular: Denies: Chest pain GI: Denies: Abdominal pain, Hematochezia, Nausea, Vomiting Male: Denies Hematuria Neurologic: Reports: Headache, Denies: Focal weakness Complete sys rev & neg: except as marked. Physical Exam Nursing note and vitals reviewed. Constitutional: Well-developed, well-nourished. Not diaphoretic. Head: Normocephalic and atraumatic. Mouth/Throat: Oropharynx is clear and moist. No oropharyngeal exudate. Eyes: EOM are normal. Pupils are equal, round, and reactive to light. Neck: Supple, no tracheal deviation. Cardiovascular: Normal rate, regular rhythm. Equal and intact distal pulses throughout. Pulmonary/Chest: Effort normal and breath sounds normal. No respiratory distress. Abdominal: Soft. No distension. There is no tenderness, rebound, or guarding. Bowel sounds present. Musculoskeletal: Range of motion grossly intact, moving all extremities. No edema or tenderness appreciated. Neurological: AOx3. Grossly nonfocal exam. Strength and sensation intact and equal to bilateral upper and lower extremities. Normal finger to nose testing. No pronator drift. Negative Romberg, unremarkable gait. Skin: Warm and dry, no rashes or pallor appreciated. Psychiatric: Appropriate mood and affect. Behavior appears normal. Vital Signs Vital Signs Date Time Temp Pulse Resp B/P Pulse Ox O2 Delivery O2 Flow Rate FiO2 10/20/16 17:11 36.7 60 16 112/65 97 Room Air 10/20/16 14:03 37.2 64 10 123/79 98 Room Air Initial VS: Reviewed Re-Eval/Medical Decision Med Decision/Clinical Course In summary, 36-year-old male with a history of migraine headaches presenting to the ED for evaluation of headache typical of previous migraine headaches that's been getting gradually worse over the past several days. Differential includes SAH vs meningitis vs intracranial mass or hematoma vs acute angle closure glaucoma vs temporal arteritis vs tension/cluster/migraine headache. Doubt SAH given that headache not sudden or maximal at onset, not described as 'worst of life', and normal neuro exam. Doubt meningitis given patient afebrile, not toxic appearing, no neck stiffness. Intracranial mass possible, though no focal neurologic findings and lack of other associated symptoms, clinical presentation make this less likely, especially in the context of pain the same as previous migraines. No eye pain or vision changes, no unilateral symptoms. No temporal tenderness to palpation. Patient given Compazine, Dilaudid, benadryl , low-dose ketamine, and IVFs here in the ED w/ improvement in symptoms. Given above, as well as patient's clinical improvement in the ED, reasonable to d/c home w/ PCP followup in the next 1 to 2 days. Careful return precautions were discussed, and patient verbalized understanding and agreement w/ the plan as stated. Denied further questions. Source of Hx: Old records Time of Eval: 17:37 Patient Status: Condition improved Re-Evaluation/Progress Note: Pt rechecked. He is feeling better and would like to go home. Informed pt of plan for discharge. Pt understands and agrees with plan for discharge. F/U instructions and RTER warnings given. All questions addressed. Counseled Regarding: Diagnosis, Need for follow-up, When/why to return to ED Discharge & Departure Primary Impression: Headache Headache type: unspecified Headache chronicity pattern: unspecified pattern Intractability: not intractable Qualified Code: R51 - Headache Disposition: Home Discharge Condition All VS Reviewed: Yes Condition: Stable Patient Instructions: Acute Headache (ED) Additional Instructions: Thank you for allowing us to be a part of your care today. I'm glad you're feeling better. Follow up with your primary care provider in the next 1-2 days. Return to the Emergency Department for fever, worsening or different headache, vision changes, weakness, numbness or tingling, or any other symptoms of concern to you. Referrals: Alexandra Ge DO (PCP) Scribe Attestation Portions of this note were transcribed by Eunice Sibley. I, Dr. Jimenez personally performed the history, physical exam and medical decision-making; I reviewed and confirmed the accuracy of the information in the transcribed note. Signed by: Fletcher Villagomez, 10/20/16. copies to: Alexandra Ge William B MD Oct 20, 2016 16:18 Eunice Morley Oct 20, 2016 16:37
[2016-10-20] MEDS ORDERED: HYDROmorphone 0.5 mg/0.5 mL iSecure Syringe IVPUSH ONE (16:55)
[2016-10-20 17:11] VITALS: BP 112/65; PULSE 60; RESP 16; O2SAT 97
== END 2016-10-20 18:01 | disposition home or self-care (01) ==
LOC: SED 13:43
DX: R51 Headache (principal); Z87.891 Personal history of nicotine dependence; Z88.1 Allergy status to other antibiotic agents; Z88.8 Allergy status to other drugs, medicaments and biological substances
CPT/HCPCS: 96361; 96374; 96375; 99284; J0780; J1170; J1200; J2405; J7030

== ENCOUNTER 2016-12-07 12:21 | Emergency (ER) | payer OTHER ==
[~2016-12-07] VITALS: Ht 180.3 cm; Wt 88.6 kg
[2016-12-07 12:38] VITALS: BP 128/86; PULSE 69; RESP 16; O2SAT 98
--- NOTE | 2016-12-07 13:17 | ED.REPORT ---
HPI-Trauma Minor / Fall Date of Service Dec 07, 2016 ED Provider: Quincy Alonzo PA-C Arturo is a 36-year-old male who presents emergency Department for evaluation following a fall. Patient reports falling off a bale of hay, approximately 1-2 feet, onto a concrete floor on his right back, shoulder and neck, striking his head. Patient reports that he saw "[place]" in his vision when he opened his eyes, but denies loss of consciousness, amnesia to events, headache, vomiting, seizure, use of blood thinners, bleeding/clotting disorders. He reports pain in his neck and back, worse in cervical and lumbar regions.. Reports pain in his right shoulder and arm, increased weakness in the right arm , pain in both palms. Patient reports history of right cervical radiculopathy. Denies bowel/bladder dysfunction. Nursing Notes Stated Complaint: FALL/BACK AND NECK PAIN Chief Complaint: Multiple Trauma/Fall Nursing Notes Reviewed: Yes Allergies: Coded Allergies: amoxicillin (Verified Allergy, Severe, heart stops, 07/11/16) clavulanic acid (Verified Allergy, Mild, 07/20/16) amitriptyline (Verified Adverse Reaction, Severe, angry, 07/11/16) diphenhydramine (Verified Adverse Reaction, Severe, restless legs , anger , 12/07/16) haloperidol (Verified Adverse Reaction, Severe, restless leg , anger, 12/07) Scheduled Acyclovir (Acyclovir) 400 Mg Tablet 400 MG PO BID Cetirizine HCl (Zyrtec) 10 Mg Capsule 10 MG PO HS Desvenlafaxine Succinate ER (Pristiq ER) 50 Mg Tablet 50 MG PO DAILY Fluticasone Propionate (Fluticasone Propionate) 50 Mcg/Actuation [place].susp 15.8 ML NS DAILY Gabapentin (Gabapentin) 300 Mg Capsule 1,200 MG PO TID Pramipexole Dihydrochloride (Mirapex) 0.125 Mg Tablet 0.125 MG PO HS Prazosin (Prazosin) 2 Mg Capsule 2 MG PO QID Ranitidine (Ranitidine) 150 Mg Capsule 150 MG PO BID Topiramate (Topiramate) 25 Mg Tablet 75 MG PO BID Scheduled PRN Cyclobenzaprine (Cyclobenzaprine) 5 Mg Tablet 5-10 MG PO TID PRN PRN Spasm Haloperidol (Haloperidol) 5 Mg Tablet 2.5-5 MG PO Q8H PRN PRN migraine Hydrocodone-Acetaminophen 10-325 mg (Hydrocodone-Acetaminophen 10-325 mg) 1 Each Tablet 1 TABLET PO Q6H PRN PRN For Pain Ibuprofen (Ibuprofen) 600 Mg Tablet 600 MG PO QID PRN PRN For Pain Methocarbamol (Methocarbamol) 750 Mg Tablet 750 MG PO QID PRN PRN For Spasm Prochlorperazine Maleate (Compazine Suppository) 25 Mg Supp.rect 25 MG RC Q8 PRN PRN For Nausea/Vomiting General Time Seen by MD: 12:47 Chief Complaint Fall Past Medical History Past Medical History Chronic neck and back pain Migraines Restless leg syndrome Past Surgical History none reported Family History Noncontributory Smoking History Former Smoker Social History Other Social History: Good social support, Local resident Ambulatory Status Cane Review of Systems Review of Systems Note: Negative unless stated otherwise in history of present illness Physical Exam General: Well appearing, well developed, well nourished, no acute distress. Neck: Mild Midline cervical spinous process tenderness at approximately C1. Back: Normal to inspection. mild midline spinous process tenderness in the midthoracic region and lower lumbar region. Right arm: Normal to inspection. excellent range of motion shoulder, elbow, wrist. Nontender. Radial pulse 2+. Head: Atraumatic, normocephalic. No mastoid tenderness. Eyes: No scleral icterus or injection. No discharge. PERRL. Vision grossly intact. Negative raccoon eyes. Normal red reflex. Light is perceived in all 4 quadrants. Ears: Hearing grossly intact. Negative Lawrence sign Nose: Symmetrical, nares patent without discharge. No frontal or maxillary sinus tenderness. Mouth/pharynx: normal dentition, mucus membranes moist. Tonsils 2+ and symmetrical, uvula midline. Pharynx noninjected, no cobblestoning or discharge. Voice clear. Neck: No tenderness or lymphadenopathy. Trachea midline. Respiratory: Regular rate and rhythm. Breath sounds present, clear to auscultation and equal bilaterally. No respiratory distress. No increased work of breathing, speaks in complete sentences. Cardiovascular: Regular rate and rhythm, without murmur, gallop or rub. No pedal edema. Skin: Warm and dry. Neurological:finger flexion and abduction strength 5/5 B/L. Deltoid abduction, wrist flexion and extension strength 4 out of 5 on the right, 5 out of 5 on the left. Sensation to light touch intact over deltoid as well as first, third and fifth digits B/L. Biceps, triceps and brachioradialis reflexes 2+ B/L. sensation and strength grossly intact in lower extremity. Cranial nerves: Vision grossly intact, PERRL, EOMI. Facial motion symmetrical, sensation to light touch over forehead, maxilla and mandible present and equal B /L. Voice clear and fluent, no drooling/pooling of saliva, uvula rises midline. Psychological: Alert and oriented. Speech appropriate, linear and logical. Behavior appropriate. Initial Vital Signs Vital Signs (First) Date Time Temp Pulse Resp B/P Pulse Ox O2 Delivery O2 Flow Rate FiO2 12/07/16 12:38 36.6 69 16 128/86 98 Room Air Normal Interpretation & Diagnostics X-Ray Interpretation Xray Interpretation: PROCEDURE: X-RAY THORACIC SPINE, 2 VIEWS INDICATIONS: fall, midline tenderness IMPRESSION: No definitive fractures. Cervicothoracic junction not well-seen. Please see separate CT cervical spine report. PROCEDURE: X-RAY LUMBAR SPINE, 2 OR 3 VIEW INDICATIONS: fall, midline tenderness IMPRESSION: 1. No definitive fracture. A lucency along the right transverse process of L5 is most likely caused by artifact from bowel gas. Please correlate with focal pain and tenderness. If there is high clinical suspicion for lower lumbar spine injury, CT could be obtained for further origin. Interpretation / Wet Read by: Interpret - Radiologist CT C-Spine Interpretation PROCEDURE: CT CERVICAL SPINE WITHOUT CONTRAST ([id number]) INDICATIONS: fall, midline tenderness IMPRESSION: No fracture in cervical spine. Mild degenerative changes in the lower cervical spine. Interpretation / Wet Read by: Interpret - Radiologist Re-Eval/Medical Decision Med Decision/Clinical Course 36-year-old male with a history of cervical radiculopathy, back and neck pain presents emergency department for evaluation following a fall. Patient reports falling off of a hay bale, proximal in 1-2 feet, falling on the posterior right shoulder, back, neck. Reports striking his head, denies losing consciousness, amnesia, headache, vomiting, seizure, use of blood thinners. Complains of neck pain, lumbar pain, thoracic pain. Complains of increased weakness in his right arm with associated pain. Complains of bilateral pain in his palms. Denies bowel /bladder dysfunction, saddle anesthesia, fever. Physical examination reveals slightly reduced strength on the right side, midline cervical spine tenderness, thoracic tenderness, lumbar tenderness. His right arm reveals excellent range of motion, is normal to inspection and nontender. Ordered CT cervical, X are thoracic and lumbar. These returned negative for fracture. Head CT is deferred based on [place] head CT rules. At this point I'm reassured against fractures or intracranial injury. The weakness on his right side does not appear to be significantly worsened from baseline. I believe the pain is neck and back is cervical, thoracic and lumbar strain. Advise regarding [id number] analgesia, provided a cyclobenzaprine prescription to supplement.Advised regarding primary care follow-up, provided emergency return precautions. Patient verbalized understanding of, and consent to, the plan. I discussed this case with Dr. Sanchez, who verbalizes agreement with the plan. Discharge & Departure Impression: Primary Impression: Cervical strain Encounter type: initial encounter Qualified Code: S16.1XXA - Strain of muscle, fascia and tendon at neck level, initial encounter Additional Impressions: Strain of thoracic region Encounter type: initial encounter Qualified Code: S29.019A - Strain of muscle and tendon of unspecified wall of thorax, initial encounter Strain of lumbar region Encounter type: initial encounter Qualified Code: S39.012A - Strain of muscle, fascia and tendon of lower back, initial encounter Disposition: Home Discharge Condition All VS Reviewed: Yes Condition: Stable Patient Instructions: Cervical Neck Strain Exercises (GEN), Cervical Strain (ED ) Additional Instructions: Evaluation in the emergency department following a fall includes interview, physical examination and imaging, all of which are reassuring that you did not suffer a serious head neck or back injury in this fall. I believe you have strained the muscles around your neck and back. The pain is best treated with 400 mg of ibuprofen (Advil, Motrin) every 6 hours , or 1000 mg of acetaminophen (Tylenol) every 6 hours. These drugs can be taken at the same time for more severe pain. Additionally I will write a prescription for cyclobenzaprine, a muscle relaxant. Do not drive or drink alcohol within 4 hours of taking this medication Follow-up with your primary care provider in the next few days to be sure this is progressing as expected. Return to the emergency department for any new or worsening symptoms including increasing pain, new neurologic symptoms, fever, bowel/bladder dysfunction, numbness between your legs. Referrals: Alexandra Ge DO (PCP) EDSupervising Provider for APC: Cyrus Sanchez MD copies to: Alexandra Ge Seth PA-C Dec 07, 2016 13:17
--- NOTE | 2016-12-07 14:04 | DRSVH ---
PROCEDURE: X-RAY THORACIC SPINE, 2 VIEWS INDICATIONS: fall, midline tenderness TECHNIQUE: 2 views of the thoracic spine were acquired. COMPARISON: [facility], CT, CT CERVICAL SPINE WO CON, 12/07/2016, 13:47. FINDINGS: Bones: Cervicothoracic junction not well-seen. No fractures or dislocations. No suspicious bony les ions. 12 pairs of ribs are noted, and appear intact where visualized. Soft tissues: No paravertebral stripe thickening. IMPRESSION: No definitive fractures. Cervicothoracic junction not well-seen. Please see separate CT c ervical spine report. Dictated by: Crystal Wallis M.D. on 12/07/2016 at 14:01 Approved by: Crystal Wallis M.D. on 12/07/2016 at 14:02
--- NOTE | 2016-12-07 14:09 | DRSVH ---
PROCEDURE: X-RAY LUMBAR SPINE, 2 OR 3 VIEW INDICATIONS: fall, midline tenderness TECHNIQUE: 3 views of the lumbar spine were acquired. COMPARISON: None. FINDINGS: Bones: 5 [id number] vertebrae are present. There is normal bony alignment. There is lucency al shanika the right transverse process of L5, most likely caused by artifact from bowel gas. No vertebral b ry compression fractures. No suspicious bony lesions. Soft tissues: Overlying bowel gas pattern is normal. No suspicious soft tissue calcifications. IMPRESSION: 1. No definitive fracture. A lucency along the right transverse process of L5 is most likely caused b y artifact from bowel gas. Please correlate with focal pain and tenderness. If there is high clinical suspicion for lower lumbar spine injury, CT could be obtained for further origin. Dictated by: Crystal Wallis M.D. on 12/07/2016 at 14:03 Approved by: rCystal Wallis M.D. on 12/07/2016 at 14:07
--- NOTE | 2016-12-07 14:13 | DRSVH ---
PROCEDURE: CT CERVICAL SPINE WITHOUT CONTRAST ([id number]) INDICATIONS: fall, midline tenderness TECHNIQUE: Noncontrast 3 mm thick sections acquired from the skull base to the T4 level. Sagittal and coronal r eformats were then constructed. For radiation dose reduction, the following was used: automated exp osure control, adjustment of mA and/or kV according to patient size. COMPARISON: [facility], CT, CT CERVICAL SPINE WO CON, 06/20/2016, 13:34. FINDINGS: Image quality: Excellent. Bones: No fractures or dislocations. Straightening of cervical curvature with loss of normal cervic al lordosis. Early degenerative disc disease is present at C6-C7 and C7-T1. Mild uncovertebral hypert rophy from C3 through C7. Visualized superior ribs are intact. Soft tissues: Prevertebral soft tissues are normal in thickness. No paravertebral hematomas. No ap ical pneumothoraces. IMPRESSION: No fracture in cervical spine. Mild degenerative changes in the lower cervical spine. Dictated by: Crystal Wallis M.D. on 12/07/2016 at 14:07 Approved by: Crystal Wallis M.D. on 12/07/2016 at 14:10
[2016-12-07] MEDS ORDERED: CYCL5TAB PO (14:39)
[2016-12-07 15:20] VITALS: BP 133/89; PULSE 75; RESP 16; O2SAT 98
== END 2016-12-07 14:50 | disposition home or self-care (01) ==
LOC: SED 12:21
DX: S16.1XXA Strain of muscle, fascia and tendon at neck level, initial encounter (principal); S39.012A Strain of muscle, fascia and tendon of lower back, initial encounter; S29.012A Strain of muscle and tendon of back wall of thorax, initial encounter; W17.89XA Other fall from one level to another, initial encounter; Y93.89 Activity, other specified; Y92.89 Other specified places as the place of occurrence of the external cause; Y99.8 Other external cause status; M25.511 Pain in right shoulder; M79.621 Pain in right upper arm; M79.641 Pain in right hand; M79.642 Pain in left hand; M62.81 Muscle weakness (generalized); G43.909 Migraine, unspecified, not intractable, without status migrainosus; Z87.891 Personal history of nicotine dependence; Z88.1 Allergy status to other antibiotic agents; Z88.8 Allergy status to other drugs, medicaments and biological substances
CPT/HCPCS: 72070; 72100; 72125; 96372; 99285; J1885